=== PATIENT | female | born 1985 | race African-American/Black ===

== ENCOUNTER 2016-10-03 09:30 | Emergency (ER) | payer MEDICAID ==
[~2016-10-03] VITALS: Ht 172.7 cm; Wt 72.6 kg
[2016-10-03 10:55] VITALS: BP 113/59
== END 2016-10-03 11:23 | disposition home or self-care (01) ==
LOC: ER 09:30
DX: J02.9 Acute pharyngitis, unspecified (principal)

== ENCOUNTER 2018-08-24 05:23 | Emergency (ER) | payer MEDICAID ==
[~2018-08-24] VITALS: Ht 172.7 cm; Wt 72.6 kg
[2018-08-24 06:15] VITALS: BP 116/69
[2018-08-24] MEDS ORDERED: methylPREDNISolone SOD SUCC 125 MG/2 ML VL IM ONE (06:45)
== END 2018-08-24 07:01 | disposition home or self-care (01) ==
LOC: ER 05:25
DX: J03.90 Acute tonsillitis, unspecified (principal)
CPT/HCPCS: 96372; 99283; J2930

== ENCOUNTER 2018-10-17 20:57 | Emergency (ER) | payer MEDICAID ==
[~2018-10-17] VITALS: Ht 172.7 cm; Wt 72.6 kg
[2018-10-17 21:15] VITALS: BP 140/86
== END 2018-10-17 21:40 | disposition left against medical advice (07) ==
LOC: ER 20:57
DX: R07.89 Other chest pain (principal); R06.02 Shortness of breath; Z53.21 Procedure and treatment not carried out due to patient leaving prior to being seen by health care provider
CPT/HCPCS: 93005